=== PATIENT | female | born 1970 | race Caucasian/White ===

== ENCOUNTER 2025-04-06 04:31 | Emergency (ER) | payer OTHER ==
[2025-04-06 04:47] VITALS: TEMP 98.2; BMI 28.9
[2025-04-06 05:07] VITALS: BP 144/66; PULSE 87; RESP 17
[2025-04-06] MEDS ORDERED: METOCLOPRAMIDE HCL INJECTION 10 MG/2 ML VIAL ONE (05:32)
[2025-04-06] MEDS ORDERED: ACETAMINOPHEN INJECTION 100 ML ONE (05:32)
[2025-04-06] MEDS ORDERED: FAMOTIDINE 20 MG TABLET ONE (05:32)
[2025-04-06] MEDS ORDERED: MAG HYDROX/AL HYDROX/SIMETH 30 ML UNIT-DOSE CUP ONE (05:32)
[2025-04-06] MEDS ORDERED: MECLIZINE HCL 25 MG TABLET (FP) ONE (05:32)
[2025-04-06] MEDS: ACETAMINOPHEN 1000 MG/100 ML BAG IVPB ONE (05:56)
[2025-04-06] MEDS: MECLIZINE HCL 25 MG TABLET (FP) PO ONE (05:56)
[2025-04-06] MEDS: METOCLOPRAMIDE HCL INJECTION 10 MG/2 ML VIAL IVPUSH ONE (05:57)
[2025-04-06] MEDS: FAMOTIDINE 20 MG TABLET PO ONE (05:57)
[2025-04-06] MEDS: MAG HYDROX/AL HYDROX/SIMETH 30 ML UNIT-DOSE CUP PO ONE (05:57)
[2025-04-06] MEDS: LACTATED RINGERS SOLUTION 1000 ML INFUS.BAG IV ONE (06:15)
[2025-04-06 06:28] LABS: MCHC 32.2 g/dl (32.2-35.5); MEAN CELL VOLUME 88.6 fl (79.4-94.8); MEAN PLT VOLUME 10.5 fl (9.4-12.3); RDW 11.9 % (12.3-16.6)
[2025-04-06 06:38] LABS: INR 0.9 (0.83-1.09); PROTHROMBIN TIME (PATIENT) 9.9 SEC (9.7-13.0)
[2025-04-06 06:42] LABS: ACTIVATED PTT 38.5 SECONDS (25.2-36.5)
[2025-04-06 06:42] LABS: EPI CELLS >36 /uL (0-25.1); HYALINE CASTS 0 /uL (0-3.1); URINE APPEARANCE CLEAR; URINE BACTERIA 2395 /uL (0-1359); URINE BILIRUBIN NEGATIVE (NEGATIVE); URINE COLOR YELLOW; URINE GLUCOSE (UA) TRACE (NEGATIVE); URINE KETONE NEGATIVE (NEGATIVE); URINE LEUK ESTERASE TRACE (NEGATIVE); URINE NITRITE NEGATIVE (NEGATIVE); URINE PROTEIN NEGATIVE (NEGATIVE); URINE RBC 15 /uL (0-23.9); URINE UROBILINOGEN 0.2 mg/dL (0.2-1.0); URINE WBC 19 /uL (0-25.8)
[2025-04-06 06:45] LABS: GLUCOSE,RANDOM 139.0 mg/dL (74-106)
[2025-04-06 06:46] LABS: TOT PROT 7.7 g/dl (6.4-8.2)
[2025-04-06 06:47] LABS: CO2 25.0 mmol/L (21-32)
[2025-04-06 06:48] LABS: ALK PHOS 118.0 U/L (40-150)
[2025-04-06 06:51] LABS: CREATININE 0.67 mg/dL (0.55-1.3); SGOT/AST 28.0 U/L (5-34); SGPT/ALT 29.0 U/L (0-55)
[2025-04-06 07:10] LABS: HCV DIAGNOSTIC IN-HOUSE W/RFLX NON-REACTIVE (NONREACTIVE)
[2025-04-06 07:19] LABS: HIV INTERPRETATION NEGATIVE (NEGATIVE)
== END 2025-04-06 07:48 | disposition home or self-care (01) ==
LOC: JER 04:31
PROC: 3E033NZ Introduction of Analgesics, Hypnotics, Sedatives into Peripheral Vein, Percutaneous Approach (ICD-10-PCS; principal; 2025-04-06)
PROC: 3E033GC Introduction of Other Therapeutic Substance into Peripheral Vein, Percutaneous Approach (ICD-10-PCS; 2025-04-06)
DX: N39.0 Urinary tract infection, site not specified (principal); R42 Dizziness and giddiness; R07.89 Other chest pain; H53.8 Other visual disturbances; R11.2 Nausea with vomiting, unspecified; R10.13 Epigastric pain; R06.02 Shortness of breath; R53.1 Weakness; R10.31 Right lower quadrant pain; R10.32 Left lower quadrant pain; R30.0 Dysuria
CPT/HCPCS: 36415; 71045-TC-FY; 80053; 81003; 83735; 84484; 85027; 85610; 85730; 86803; 87086; 87389; 93005; 93010; 99285-25